=== PATIENT | female | born 1980 | race Caucasian/White ===

== ENCOUNTER 2016-06-08 10:02 | Emergency (ER) | payer OTHER ==
[~2016-06-08] VITALS: Ht 162.6 cm; Wt 90.0 kg
[~2016-06-08 10:02] MED LIST: AMBIEN 10MG10 MG PO; AMBIEN 5MG TABLE5 MG PO; AMOXICILLIN 50500 MG PO; BIRTH CONTROL PILL PO; CELEXA; EC NAPROSYN500 MG PO; GLUCOPHAGE1000 MG PO; IRON325 M1 PO; KLONOPIN 0.5MG0.5 MG PO; LEVOXYL0.025 MG PO; LORTAB 5/500 501 TAB PO; MOBIC 7.5MG7.5 MG PO; MOTRIN 600600 MG/TAB PO; NEXIUM40 MG PO; NO HOME MEDICATIONS; NORCO 325 MG-51 TAB PO; PHENERGAN 25 TA25 MG PO; PHENERGAN W/CO120 M1 PO; PRENATAL1 TA1 PO; RANITIDINE75 MG PO; SLEEP MED; SOME ANTIBIOTIC; SYNTHROID0.075 MG/T PO; TESSALON P100 MG/CAP PO; VENTOLIN0.09 MG IH; XANAX 0.5MG0.5 MG PO; ZITHROMAX Z PA250 MG PO; [UNRECOGNIZED DRUG - REMARK]; [UNRECOGNIZED DRUG - REMARK]
[2016-06-08 10:05] VITALS: BP 126/93; TEMP 97.5
[2016-06-08 10:49] LABS: BASO % 0.4 % (0.0-2.0); EOS % 0.7 % (0-4.0); GRAN # 3.9 (1.4-6.5); GRAN % 69.6 % (42.2-75.2); HEMATOCRIT 39.9 % (37.0-47.0); HEMOGLOBIN 13.6 g/dl (12.5-16.0); LYMPH # 1.2 (1.2-3.4); LYMPH % 22.2 % (20.0-51.0); MEAN CELL VOLUME 96 fl (80.0-100.0); MEAN CORPUSCULAR HEMOGLOBIN 33 pg (27.0-31.0); MEAN CORPUSCULAR HGB CONC 34 g/dl (33.0-37.0); MEAN PLATELET VOLUME 9.8 fl (7.4-10.4); MONO # 0.4 (0.1-0.6); MONO % 6.9 % (1.7-9.3); PLATELET COUNT 225 K/mm3 (130-400); RED BLOOD COUNT 4.17 M/mm3 (4.10-5.30); REDCELL DISTRIBUTION WIDTH-CV 12.6 % (11.5-14.5); WHITE BLOOD COUNT 5.5 K/mm3 (4.8-10.8)
[2016-06-08 12:03] VITALS: PULSE 81
== END 2016-06-08 12:03 | disposition home or self-care (01) ==
LOC: COL.ER 10:02
PROVIDERS: Nurse Practitioner
DX: G43.909 Migraine, unspecified, not intractable, without status migrainosus (principal); I10 Essential (primary) hypertension
CPT/HCPCS: J1200; J1885; J2060; J2550; J2765; J7030

== ENCOUNTER 2016-06-29 09:07 | Emergency (ER) | payer MEDICAID ==
[~2016-06-29] VITALS: Ht 162.6 cm; Wt 81.8 kg
[2016-06-29 09:10] VITALS: BP 110/76; PULSE 114
[2016-06-29] MEDS ORDERED: SYNTHROID0.075 MG/T PO (09:15)
[2016-06-29] MEDS ORDERED: TOPAMAX 25MG25 M1 PO (09:15)
[2016-06-29] MEDS ORDERED: EFFEXOR 75M75 MG/TAB PO (09:15)
[2016-06-29 10:09] LABS: INFLUENZA B NEGATIVE
[2016-06-29 11:23] LABS: PH 6 (5-8); URINE APPEARANCE Hazy; URINE BACTERIA None Seen /hpf; URINE BILIRUBIN Negative (NEGATIVE); URINE BLOOD Negative (NEGATIVE); URINE COLOR Yellow; URINE GLUCOSE Negative (NEGATIVE); URINE KETONE Negative (NEGATIVE)
[2016-06-29] MEDS ORDERED: NORCO 325 MG-51 TAB PO (11:58)
[2016-06-29] MEDS ORDERED: ZITHROMAX 250M250 MG PO (11:58)
[2016-06-29 12:20] VITALS: TEMP 98.6
== END 2016-06-29 12:30 | disposition home or self-care (01) ==
LOC: COL.ER 09:07
PROVIDERS: Emergency Medicine
DX: J20.9 Acute bronchitis, unspecified (principal)
CPT/HCPCS: J2405; J7030

== ENCOUNTER 2016-08-30 16:02 | Emergency (ER) | payer MEDICAID ==
[~2016-08-30] VITALS: Ht 167.6 cm; Wt 86.4 kg
[~2016-08-30 16:02] MED LIST changes: +EFFEXOR 75M75 MG/TAB PO; +TOPAMAX 25MG25 M1 PO; +ZITHROMAX 250M250 MG PO
[2016-08-30 16:07] VITALS: BP 135/73; PULSE 109; TEMP 99
== END 2016-08-30 16:45 | disposition left against medical advice (07) ==
LOC: COL.ER 16:02
DX: Z76.0 Encounter for issue of repeat prescription (principal); Z53.21 Procedure and treatment not carried out due to patient leaving prior to being seen by health care provider

== ENCOUNTER → 2016-09-04 | Outpatient (CLI) | payer MEDICAID | LOC: COL.RAD 09:50 | DX: C64.2 Malignant neoplasm of left kidney, except renal pelvis (principal); R50.82 Postprocedural fever; N20.0 Calculus of kidney; N28.89 Other specified disorders of kidney and ureter; Z98.890 Other specified postprocedural states | CPT/HCPCS: Q9967 ==

== ENCOUNTER 2017-06-24 09:37 | Emergency (ER) | payer MEDICAID ==
[~2017-06-24] VITALS: Ht 157.5 cm; Wt 86.4 kg
[~2017-06-24 09:37] MED LIST changes: +SYNTHROID0.1 MG/TAB PO
[2017-06-24 09:39] VITALS: TEMP 98.6
[2017-06-24] MEDS ORDERED: PRIL40 PO (10:30)
[2017-06-24] MEDS ORDERED: AMBIEN 10MG10 MG PO (10:30)
[2017-06-24 10:34] LABS: BASO % 0.6 % (0.0-2.0); EOS # 0.1 (0.0-0.7); EOS % 1.9 % (0-4.0); GRAN # 3.5 (1.4-6.5); GRAN % 56.3 % (42.2-75.2); HEMATOCRIT 39.8 % (37.0-47.0); HEMOGLOBIN 13.3 g/dl (12.5-16.0); LYMPH # 2.1 (1.2-3.4); LYMPH % 34.2 % (20.0-51.0); MEAN CELL VOLUME 93 fl (80.0-100.0); MEAN CORPUSCULAR HEMOGLOBIN 31 pg (27.0-31.0); MEAN CORPUSCULAR HGB CONC 33 g/dl (33.0-37.0); MEAN PLATELET VOLUME 8.9 fl (7.4-10.4); MONO # 0.4 (0.1-0.6); MONO % 6.7 % (1.7-9.3); PLATELET COUNT 291 K/mm3 (130-400); RED BLOOD COUNT 4.26 M/mm3 (4.10-5.30); REDCELL DISTRIBUTION WIDTH-CV 13.5 % (11.5-14.5)
[2017-06-24 10:45] LABS: ALANINE AMINOTRANSFERASE 92 U/L (9-52); ALBUMIN 4.4 gm/dL (3.5-5.0); ALKALINE PHOSPHATASE 108 U/L (50-136); ANION GAP 7 mmol/L (7-16); AST,SGOT 77 U/L (15-37); BILIRUBIN,TOTAL 0.8 mg/dL (0.0-1.0); BLOOD UREA NITROGEN 16 mg/dL (7-17); CARBON DIOXIDE 27 mmol/L (22-30); CHLORIDE 103 mmol/L (98-107); CREATININE, serum 0.75 mg/dL (0.52-1.25); GLUCOSE 109 mg/dL (74-106); LIPASE 80 U/L (23-300); POTASSIUM 4.1 mmol/L (3.4-5.0); SODIUM 137 mmol/L (137-145)
[2017-06-24 10:49] LABS: C-REACTIVE PROTEIN < 0.5 mg/dL (0.0-0.9)
[2017-06-24] MEDS ORDERED: NORCO 325 MG-51 TAB PO (12:31)
[2017-06-24 12:55] LABS: COLLECTION METHOD CLEAN CATCH
[2017-06-24 13:09] LABS: MUCOUS Present /lpf; PH 6 (5-8); SQUAMOUS EPITHELIAL 0-2 /hpf; URINE APPEARANCE Clear; URINE BACTERIA None Seen /hpf; URINE BILIRUBIN Negative (NEGATIVE); URINE BLOOD Negative (NEGATIVE); URINE COLOR Straw; URINE GLUCOSE Negative (NEGATIVE); URINE KETONE Negative (NEGATIVE); URINE LEUKOCYTE ESTERASE Negative (NEGATIVE); URINE NITRATE Negative (NEGATIVE); URINE PROTEIN(semi-quant) Negative (NEGATIVE); URINE RBC 0-2 /hpf; URINE UROBILINOGEN Negative (NEGATIVE)
[2017-06-24 13:26] VITALS: BP 110/69; PULSE 79
== END 2017-06-24 13:26 | disposition home or self-care (01) ==
LOC: COL.ER 09:37
PROVIDERS: Family Medicine
DX: R10.12 Left upper quadrant pain (principal); Z85.528 Personal history of other malignant neoplasm of kidney; Z90.5 Acquired absence of kidney; Z90.49 Acquired absence of other specified parts of digestive tract; Z90.89 Acquired absence of other organs
CPT/HCPCS: J1170; J2405; J2550; J7030

== ENCOUNTER 2018-04-27 19:00 | Emergency (ER) | payer MEDICAID ==
[~2018-04-27] VITALS: Ht 162.6 cm; Wt 86.4 kg
[~2018-04-27 19:00] MED LIST changes: +PRIL40 PO
[2018-04-27] MEDS ORDERED: EFFEXOR XR75 MG/CAP PO (19:12)
[2018-04-27] MEDS ORDERED: CIPRO 500MG TA500 MG PO (19:29)
[2018-04-27 19:30] LABS: COLLECTION METHOD CLEAN CATCH
[2018-04-27 19:36] LABS: BASO # 0.1 (0.0-0.2); BASO % 0.7 % (0.0-2.0); EOS # 0.1 (0.0-0.7); EOS % 1.5 % (0-4.0); GRAN # 4.4 (1.4-6.5); GRAN % 58.1 % (42.2-75.2); HEMATOCRIT 42.6 % (37.0-47.0); HEMOGLOBIN 14.6 g/dl (12.5-16.0); LYMPH # 2.4 (1.2-3.4); LYMPH % 32.2 % (20.0-51.0); MEAN CELL VOLUME 95 fl (80.0-100.0); MEAN CORPUSCULAR HEMOGLOBIN 32 pg (27.0-31.0); MEAN CORPUSCULAR HGB CONC 34 g/dl (33.0-37.0); MEAN PLATELET VOLUME 9.5 fl (7.4-10.4); MONO # 0.5 (0.1-0.6); MONO % 7.2 % (1.7-9.3); PLATELET COUNT 237 K/mm3 (130-400); REDCELL DISTRIBUTION WIDTH-CV 11.9 % (11.5-14.5)
[2018-04-27 19:45] LABS: ALANINE AMINOTRANSFERASE 38 U/L (9-52); ALBUMIN 4.4 gm/dL (3.5-5.0); ALKALINE PHOSPHATASE 77 U/L (50-136); ANION GAP 8 mmol/L (7-16); AST,SGOT 28 U/L (15-37); BILIRUBIN,TOTAL 0.3 mg/dL (0.0-1.0); BLOOD UREA NITROGEN 15 mg/dL (7-17); C-REACTIVE PROTEIN < 0.5 mg/dL (0.0-0.9); CALCIUM 9.2 mg/dL (8.4-10.2); CARBON DIOXIDE 24 mmol/L (22-30); CHLORIDE 109 mmol/L (98-107); CREATININE, serum 0.97 mg/dL (0.52-1.25); GLUCOSE 113 mg/dL (74-106); LIPASE 87 U/L (23-300); MUCOUS Present /lpf; PH 6 (5-8); POTASSIUM 4.1 mmol/L (3.4-5.0); SODIUM 140 mmol/L (137-145); TOTAL PROTEIN 8.2 gm/dL (6.4-8.2); URINE APPEARANCE Clear; URINE BACTERIA None Seen /hpf; URINE BILIRUBIN Negative (NEGATIVE); URINE BLOOD Negative (NEGATIVE); URINE CALCIUM OXALATE CRYSTAL Present /hpf; URINE COLOR Yellow; URINE GLUCOSE Negative (NEGATIVE); URINE KETONE Negative (NEGATIVE); URINE LEUKOCYTE ESTERASE Negative (NEGATIVE); URINE NITRATE Negative (NEGATIVE); URINE PROTEIN(semi-quant) 1+ (NEGATIVE); URINE RBC 0-2 /hpf; URINE UROBILINOGEN Negative (NEGATIVE)
[2018-04-27 21:05] VITALS: BP 116/97; PULSE 112; TEMP 97.8
[2018-04-27] MEDS ORDERED: PYRIDIUM200 M1 PO (21:06)
== END 2018-04-27 21:18 | disposition home or self-care (01) ==
LOC: COL.ER 19:00
PROVIDERS: Emergency Medicine
DX: R10.32 Left lower quadrant pain (principal); R30.0 Dysuria; Z90.49 Acquired absence of other specified parts of digestive tract; Z90.89 Acquired absence of other organs
CPT/HCPCS: J0780; J1170; J1200; J1885; J2060; J7030; Q9967

== ENCOUNTER 2018-05-11 15:01 | Emergency (ER) | payer MEDICAID ==
[~2018-05-11] VITALS: Ht 162.6 cm; Wt 86.4 kg
[~2018-05-11 15:01] MED LIST changes: +CIPRO 500MG TA500 MG PO; +EFFEXOR XR75 MG/CAP PO; +PYRIDIUM200 M1 PO
[2018-05-11 15:05] VITALS: TEMP 97.5
[2018-05-11] MEDS ORDERED: SYNTHROID0.125 MG/T PO (15:27)
[2018-05-11 15:28] LABS: COLLECTION METHOD CLEAN CATCH
[2018-05-11 15:33] LABS: MUCOUS Present /lpf; PH 6 (5-8); SQUAMOUS EPITHELIAL 0-2 /hpf; URINE APPEARANCE Clear; URINE BACTERIA None Seen /hpf; URINE BILIRUBIN Negative (NEGATIVE); URINE BLOOD Negative (NEGATIVE); URINE COLOR Yellow; URINE GLUCOSE Negative (NEGATIVE); URINE KETONE Negative (NEGATIVE); URINE LEUKOCYTE ESTERASE Negative (NEGATIVE); URINE NITRATE Negative (NEGATIVE); URINE PROTEIN(semi-quant) Negative (NEGATIVE); URINE RBC 0-2 /hpf; URINE UROBILINOGEN Negative (NEGATIVE)
[2018-05-11 15:45] LABS: BASO % 0.6 % (0.0-2.0); EOS # 0.1 (0.0-0.7); EOS % 1.7 % (0-4.0); GRAN % 57.1 % (42.2-75.2); HEMATOCRIT 40.4 % (37.0-47.0); HEMOGLOBIN 13.8 g/dl (12.5-16.0); LYMPH # 2.4 (1.2-3.4); LYMPH % 34.4 % (20.0-51.0); MEAN CELL VOLUME 94 fl (80.0-100.0); MEAN CORPUSCULAR HEMOGLOBIN 32 pg (27.0-31.0); MEAN CORPUSCULAR HGB CONC 34 g/dl (33.0-37.0); MEAN PLATELET VOLUME 9.1 fl (7.4-10.4); MONO # 0.4 (0.1-0.6); MONO % 6.1 % (1.7-9.3); PLATELET COUNT 250 K/mm3 (130-400); RED BLOOD COUNT 4.29 M/mm3 (4.10-5.30); REDCELL DISTRIBUTION WIDTH-CV 12.3 % (11.5-14.5)
[2018-05-11 15:56] LABS: ALANINE AMINOTRANSFERASE 25 U/L (9-52); ALBUMIN 4.3 gm/dL (3.5-5.0); ALKALINE PHOSPHATASE 86 U/L (50-136); ANION GAP 7 mmol/L (7-16); AST,SGOT 29 U/L (15-37); BILIRUBIN,TOTAL 0.4 mg/dL (0.0-1.0); BLOOD UREA NITROGEN 15 mg/dL (7-17); CARBON DIOXIDE 28 mmol/L (22-30); CHLORIDE 106 mmol/L (98-107); CREATININE, serum 0.79 mg/dL (0.52-1.25); GLUCOSE 96 mg/dL (74-106); POTASSIUM 3.9 mmol/L (3.4-5.0); SODIUM 141 mmol/L (137-145); TOTAL PROTEIN 7.9 gm/dL (6.4-8.2)
[2018-05-11 16:15] LABS: C-REACTIVE PROTEIN < 0.5 mg/dL (0.0-0.9)
[2018-05-11] MEDS ORDERED: LAMISIL250 M1 PO (16:52)
[2018-05-11 17:31] VITALS: BP 126/81; PULSE 66
== END 2018-05-11 17:31 | disposition home or self-care (01) ==
LOC: COL.ER 15:01
PROVIDERS: Nurse Practitioner
DX: R10.32 Left lower quadrant pain (principal); B35.0 Tinea barbae and tinea capitis; F41.9 Anxiety disorder, unspecified; Z90.49 Acquired absence of other specified parts of digestive tract; Z85.828 Personal history of other malignant neoplasm of skin
CPT/HCPCS: J7030

== ENCOUNTER → 2019-02-07 | Outpatient (CLI) | payer MEDICAID ==
[~2019-02-07] MED LIST changes: +LAMISIL250 M1 PO; +SYNTHROID0.125 MG/T PO
== END ==
LOC: COL.RAD 07:43
DX: K44.9 Diaphragmatic hernia without obstruction or gangrene (principal); K29.70 Gastritis, unspecified, without bleeding; K21.9 Gastro-esophageal reflux disease without esophagitis
CPT/HCPCS: A9541

== ENCOUNTER 2019-09-18 13:11 | Emergency (ER) | payer MEDICAID ==
[~2019-09-18] VITALS: Ht 165.1 cm; Wt 83.2 kg
[2019-09-18] MEDS ORDERED: PYRIDIUM200 M1 PO (13:25)
[2019-09-18] MEDS ORDERED: BUSPIRONE HCL7.5 MG PO (13:26)
[2019-09-18] MEDS ORDERED: AMBIEN 10MG10 MG PO (13:26)
[2019-09-18 13:27] VITALS: TEMP 98.3
[2019-09-18 14:04] LABS: COLLECTION METHOD CLEAN CATCH
[2019-09-18 14:09] LABS: BASO # 0.1 (0.0-0.2); BASO % 0.9 % (0.0-2.0); EOS # 0.1 (0.0-0.7); EOS % 1.7 % (0-4.0); GRAN # 3.3 (1.4-6.5); GRAN % 46.2 % (42.2-75.2); HEMATOCRIT 41.5 % (37.0-47.0); HEMOGLOBIN 13.8 g/dl (12.5-16.0); LYMPH % 41.9 % (20.0-51.0); MEAN CELL VOLUME 95 fl (80.0-100.0); MEAN CORPUSCULAR HEMOGLOBIN 32 pg (27.0-31.0); MEAN CORPUSCULAR HGB CONC 33 g/dl (33.0-37.0); MEAN PLATELET VOLUME 9.2 fl (7.4-10.4); MONO # 0.7 (0.1-0.6); MONO % 9.2 % (1.7-9.3); PLATELET COUNT 288 K/mm3 (130-400); RED BLOOD COUNT 4.38 M/mm3 (4.10-5.30); REDCELL DISTRIBUTION WIDTH-CV 11.9 % (11.5-14.5)
[2019-09-18 14:18] LABS: ALBUMIN 4.7 gm/dL (3.5-5.0); BILIRUBIN,TOTAL 0.6 mg/dL (0.0-1.0); CREATININE, serum 0.68 (0.52-1.25)
[2019-09-18 14:24] LABS: MUCOUS Present /lpf; PH 5 (5-8); SQUAMOUS EPITHELIAL 0-2 /hpf; URINE APPEARANCE Hazy; URINE BACTERIA Occasional /hpf; URINE BILIRUBIN Negative (NEGATIVE); URINE BLOOD 3+ (NEGATIVE); URINE COLOR Yellow; URINE GLUCOSE Negative (NEGATIVE); URINE KETONE Negative (NEGATIVE); URINE LEUKOCYTE ESTERASE Negative (NEGATIVE); URINE NITRATE Negative (NEGATIVE); URINE PROTEIN(semi-quant) 1+ (NEGATIVE); URINE RBC >50 /hpf; URINE UROBILINOGEN Negative (NEGATIVE)
[2019-09-18] MEDS ORDERED: PERCOCET 325 MG1 TA2 PO (15:22)
[2019-09-18] MEDS ORDERED: ZOFRAN ODT4 MG PO (15:22)
[2019-09-18] MEDS ORDERED: CEFTIN 250250 MG/TAB PO (15:22)
[2019-09-18 15:33] VITALS: BP 116/69; PULSE 72
[2019-09-19] MEDS ORDERED: ZOFRAN 4MG T4 MG/TAB PO (19:38)
[2019-09-19] MEDS ORDERED: NORCO 325 MG-51 TAB PO (19:38)
== END 2019-09-18 15:33 | disposition home or self-care (01) ==
LOC: COL.ER 13:11
PROVIDERS: Nurse Practitioner
DX: R10.9 Unspecified abdominal pain (principal); R31.9 Hematuria, unspecified; I10 Essential (primary) hypertension; F41.9 Anxiety disorder, unspecified; E03.9 Hypothyroidism, unspecified; Z90.89 Acquired absence of other organs
CPT/HCPCS: J1170; J1885; J2405; J7030

== ENCOUNTER 2019-09-19 16:53 | Emergency (ER) | payer MEDICAID ==
[~2019-09-19] VITALS: Ht 162.6 cm; Wt 83.2 kg
[~2019-09-19 16:53] MED LIST changes: +BUSPIRONE HCL7.5 MG PO; +CEFTIN 250250 MG/TAB PO; +PERCOCET 325 MG1 TA2 PO; +ZOFRAN ODT4 MG PO
[2019-09-19 17:00] VITALS: TEMP 97.2
[2019-09-19 17:33] LABS: BASO % 0.5 % (0.0-2.0); EOS # 0.1 (0.0-0.7); EOS % 1.5 % (0-4.0); GRAN # 3.6 (1.4-6.5); GRAN % 64.6 % (42.2-75.2); HEMATOCRIT 40.6 % (37.0-47.0); HEMOGLOBIN 13.4 g/dl (12.5-16.0); LYMPH # 1.5 (1.2-3.4); MEAN CELL VOLUME 95 fl (80.0-100.0); MEAN CORPUSCULAR HEMOGLOBIN 31 pg (27.0-31.0); MEAN CORPUSCULAR HGB CONC 33 g/dl (33.0-37.0); MEAN PLATELET VOLUME 8.6 fl (7.4-10.4); MONO # 0.3 (0.1-0.6); MONO % 6.2 % (1.7-9.3); PLATELET COUNT 258 K/mm3 (130-400); RED BLOOD COUNT 4.29 M/mm3 (4.10-5.30); REDCELL DISTRIBUTION WIDTH-CV 11.9 % (11.5-14.5)
[2019-09-19 17:48] LABS: ALANINE AMINOTRANSFERASE 46 U/L (4-34); ALBUMIN 4.3 gm/dL (3.5-5.0); ALKALINE PHOSPHATASE 109 U/L (50-136); ANION GAP 7 mmol/L (7-16); AST,SGOT 40 U/L (15-37); BILIRUBIN,TOTAL 0.8 mg/dL (0.0-1.0); BLOOD UREA NITROGEN 15 mg/dL (7-17); CALCIUM 9.1 mg/dL (8.4-10.2); CARBON DIOXIDE 27 mmol/L (22-30); CHLORIDE 106 mmol/L (98-107); CREATININE, serum 0.88 (0.52-1.25); GLUCOSE 116 mg/dL (74-106); POTASSIUM 4.1 mmol/L (3.4-5.0); SODIUM 140 mmol/L (137-145); TOTAL PROTEIN 8.1 gm/dL (6.4-8.2)
[2019-09-19 17:49] LABS: C-REACTIVE PROTEIN < 0.5 mg/dL (0.0-0.9)
[2019-09-19 18:08] LABS: COLLECTION METHOD CLEAN CATCH
[2019-09-19 18:19] LABS: MUCOUS Present /lpf; PH 5 (5-8); SQUAMOUS EPITHELIAL 0-2 /hpf; URINE APPEARANCE Clear; URINE BACTERIA None Seen /hpf; URINE BILIRUBIN Negative (NEGATIVE); URINE BLOOD 3+ (NEGATIVE); URINE COLOR Yellow; URINE GLUCOSE Negative (NEGATIVE); URINE KETONE Negative (NEGATIVE); URINE LEUKOCYTE ESTERASE Negative (NEGATIVE); URINE NITRATE Negative (NEGATIVE); URINE PROTEIN(semi-quant) Negative (NEGATIVE); URINE UROBILINOGEN Negative (NEGATIVE)
[2019-09-19] MEDS ORDERED: NORCO 325 MG-51 TAB PO (19:38)
[2019-09-19] MEDS ORDERED: ZOFRAN 4MG T4 MG/TAB PO (19:38)
[2019-09-19 20:38] VITALS: BP 128/74; PULSE 62
== END 2019-09-19 20:42 | disposition home or self-care (01) ==
LOC: COL.ER 16:53
PROVIDERS: Physician Assistant
DX: N23 Unspecified renal colic (principal); R51 Headache
CPT/HCPCS: J0780; J1170; J1200; J1885; J2405; J7030; Q9967

== ENCOUNTER 2019-11-09 16:15 | Emergency (ER) | payer MEDICAID ==
[~2019-11-09] VITALS: Ht 165.1 cm; Wt 83.2 kg
[~2019-11-09 16:15] MED LIST changes: +ZOFRAN 4MG T4 MG/TAB PO
[2019-11-09 16:27] VITALS: TEMP 97.6
[2019-11-09] MEDS ORDERED: AMBIEN 10MG10 MG PO (16:44)
[2019-11-09] MEDS ORDERED: D3-5050000 IU PO (16:44)
[2019-11-09] MEDS ORDERED: VITAMIN B COMPL1 SGL PO (16:44)
[2019-11-09 17:00] LABS: COLLECTION METHOD CLEAN CATCH
[2019-11-09 17:09] LABS: BASO % 0.4 % (0.0-2.0); EOS # 0.1 (0.0-0.7); GRAN # 4.9 (1.4-6.5); GRAN % 60.9 % (42.2-75.2); HEMATOCRIT 39.1 % (37.0-47.0); HEMOGLOBIN 13.3 g/dl (12.5-16.0); LYMPH # 2.3 (1.2-3.4); MEAN CELL VOLUME 94 fl (80.0-100.0); MEAN CORPUSCULAR HEMOGLOBIN 32 pg (27.0-31.0); MEAN CORPUSCULAR HGB CONC 34 g/dl (33.0-37.0); MEAN PLATELET VOLUME 9.2 fl (7.4-10.4); MONO # 0.7 (0.1-0.6); MONO % 8.5 % (1.7-9.3); PLATELET COUNT 220 K/mm3 (130-400); RED BLOOD COUNT 4.14 M/mm3 (4.10-5.30); REDCELL DISTRIBUTION WIDTH-CV 12.4 % (11.5-14.5)
[2019-11-09 17:14] LABS: MUCOUS Present /lpf; PH 6 (5-8); URINE APPEARANCE Clear; URINE BACTERIA None Seen /hpf; URINE BILIRUBIN Negative (NEGATIVE); URINE BLOOD 2+ (NEGATIVE); URINE COLOR Amber; URINE GLUCOSE Negative (NEGATIVE); URINE KETONE Negative (NEGATIVE); URINE LEUKOCYTE ESTERASE Negative (NEGATIVE); URINE NITRATE Positive (NEGATIVE); URINE PROTEIN(semi-quant) Negative (NEGATIVE); URINE UROBILINOGEN >=4.0 mg/dL (NEGATIVE)
[2019-11-09 17:21] LABS: ALANINE AMINOTRANSFERASE 16 U/L (4-34); ALBUMIN 4.3 gm/dL (3.5-5.0); ALKALINE PHOSPHATASE 80 U/L (50-136); ANION GAP 7 mmol/L (7-16); AST,SGOT 19 U/L (15-37); BILIRUBIN,TOTAL 0.9 mg/dL (0.0-1.0); BLOOD UREA NITROGEN 16 mg/dL (7-17); CALCIUM 8.9 mg/dL (8.4-10.2); CARBON DIOXIDE 25 mmol/L (22-30); CHLORIDE 106 mmol/L (98-107); CREATININE, serum 0.77 (0.52-1.25); GLUCOSE 96 mg/dL (74-106); LIPASE 88 U/L (23-300); POTASSIUM 3.5 mmol/L (3.4-5.0); SODIUM 138 mmol/L (137-145); TOTAL PROTEIN 7.9 gm/dL (6.4-8.2)
[2019-11-09 17:26] LABS: C-REACTIVE PROTEIN < 0.5 mg/dL (0.0-0.9)
[2019-11-09] MEDS ORDERED: MACROBID 1100 MG/CAP PO (17:53)
[2019-11-09 17:58] VITALS: BP 124/81; PULSE 75
[2019-11-09] MEDS ORDERED: PERCOCET 325 MG1 TA2 PO (18:00)
== END 2019-11-09 18:15 | disposition home or self-care (01) ==
LOC: COL.ER 16:15
PROVIDERS: Family Medicine
DX: N39.0 Urinary tract infection, site not specified (principal); R19.7 Diarrhea, unspecified; G89.29 Other chronic pain; Z90.49 Acquired absence of other specified parts of digestive tract; Z90.89 Acquired absence of other organs; Z32.02 Encounter for pregnancy test, result negative; Z88.8 Allergy status to other drugs, medicaments and biological substances
CPT/HCPCS: J0696; J2270; J2405; J7120

== ENCOUNTER 2019-11-15 11:01 | Day surgery (SDC) | payer MEDICAID ==
[~2019-11-15] VITALS: Ht 165.1 cm; Wt 84.3 kg
[~2019-11-15 11:01] MED LIST changes: +D3-5050000 IU PO; +MACROBID 1100 MG/CAP PO; +VITAMIN B COMPL1 SGL PO
[2019-11-15 11:35] VITALS: BP 120/78; PULSE 96; TEMP 98.2
[2019-11-15 11:54] LABS: COLLECTION METHOD CLEAN CATCH
[2019-11-15 12:24] LABS: MUCOUS Present /lpf; PH 5 (5-8); URINE APPEARANCE Cloudy; URINE BACTERIA None Seen /hpf; URINE BILIRUBIN Negative (NEGATIVE); URINE BLOOD 3+ (NEGATIVE); URINE CALCIUM OXALATE CRYSTAL Present /hpf; URINE COLOR Yellow; URINE GLUCOSE Negative (NEGATIVE); URINE KETONE Negative (NEGATIVE); URINE LEUKOCYTE ESTERASE Negative (NEGATIVE); URINE NITRATE Negative (NEGATIVE); URINE PROTEIN(semi-quant) 1+ (NEGATIVE); URINE RBC >50 /hpf
[2019-11-15 12:29] LABS: BASO % 0.5 % (0.0-2.0); EOS # 0.1 (0.0-0.7); EOS % 1.8 % (0-4.0); GRAN # 3.5 (1.4-6.5); GRAN % 58.8 % (42.2-75.2); HEMOGLOBIN 12.8 g/dl (12.5-16.0); LYMPH # 1.9 (1.2-3.4); LYMPH % 31.2 % (20.0-51.0); MEAN CELL VOLUME 94 fl (80.0-100.0); MEAN CORPUSCULAR HEMOGLOBIN 33 pg (27.0-31.0); MEAN CORPUSCULAR HGB CONC 35 g/dl (33.0-37.0); MEAN PLATELET VOLUME 9.2 fl (7.4-10.4); MONO # 0.5 (0.1-0.6); MONO % 7.7 % (1.7-9.3); PLATELET COUNT 223 K/mm3 (130-400); RED BLOOD COUNT 3.91 M/mm3 (4.10-5.30); REDCELL DISTRIBUTION WIDTH-CV 12.5 % (11.5-14.5)
[2019-11-15 12:31] LABS: HEMATOCRIT 36.9 % (37.0-47.0)
[2019-11-15 12:39] LABS: CALCIUM 8.9 mg/dL (8.4-10.2); CREATININE, serum 0.65 (0.52-1.25); POTASSIUM 3.5 mmol/L (3.4-5.0)
[2019-11-15 16:31] VITALS: BP 119/76; PULSE 76; TEMP 97.8
--- NOTE | 2019-11-15 17:59 | NUR ---
Patient was admitted late this morning. Admitted per . Orders obtained. Inital,5 page, med rec up to date. Vss. Iv started, Ivf & antibioitcs per orders. Patient tolerating general diet, she will be NPO at 0000, plans or Or in the AM. Pain managed per orders, she has had low pelvis pain. Scds ble.
[2019-11-15 20:00] VITALS: BP 140/93; PULSE 77; TEMP 98
[2019-11-15 23:30] VITALS: BP 129/69; PULSE 72; TEMP 98.2
[2019-11-16] VITALS (12 sets, daily range): BP systolic 120–144; BP diastolic 64–84; PULSE 65–95; TEMP 98–98.4
--- NOTE | 2019-11-16 11:22 | NUR ---
PT A/O X3, WAITING FOR SURGERY. LATER THIS PM. INDEPENDENT IN ROOM. LUNGS CLEAR, NO INCISIONS.
--- NOTE | 2019-11-16 14:40 | NUR ---
PT TO SURGERY PER BED AT THIS TIME.
--- NOTE | 2019-11-16 17:23 | NUR ---
PT BACK TO ROOM 329 PER BED WITH REPORT FROM [facility] HUGHES PACU @[id number]. PT IS A/O X3 DROWSEY, IV TO RIGHT HAND. PT REPORTING INCREASING PAIN, PO PAIN MEDS GIVEN PER ORDERS. STENT PLACED WITH STRING TEGADERM TO LEFT THIGH. SCDS PLACED BILATERALLY.
--- NOTE | 2019-11-16 19:45 | NUR ---
Assessment complete. VSS WNL. Taking PO fluids w/o c/o N/V. Kpad to lower abd for comfort. Requests crackers, provided. Denies other needs at this time.
[2019-11-17 03:27] VITALS: BP 118/63; PULSE 69; TEMP 98.9
[2019-11-17 08:19] VITALS: BP 111/63; PULSE 68; TEMP 98.1
--- NOTE | 2019-11-17 09:03 | NUR ---
PT RESTING IN BED, REPORTING PAIN IS BETTER. DR ARMSTRONG IN TO SEE PT THIS AM. DISCHARGE ORDERS RECIEVED.
--- NOTE | 2019-11-17 10:18 | NUR ---
DISCHARGE INSTRUCTIONS REVIEWED WITH PT. PT ESCORTED TO FRONT AMBULATORY,
== END 2019-11-17 10:00 | disposition home or self-care (01) ==
LOC: SDCO 11:01 → JCC 11:01 → EDSTATUS 11-16 15:00 → JCC 11-16 16:12 → SDCO 11-17 10:00 → JCC 11-17 10:00
PROVIDERS: Urology
DX: N20.2 Calculus of kidney with calculus of ureter (principal); N39.0 Urinary tract infection, site not specified; I10 Essential (primary) hypertension; E03.9 Hypothyroidism, unspecified; E28.2 Polycystic ovarian syndrome; F41.9 Anxiety disorder, unspecified; G47.00 Insomnia, unspecified; E66.9 Obesity, unspecified; Z68.30 Body mass index [BMI] 30.0-30.9, adult; Z79.899 Other long term (current) drug therapy; Z85.528 Personal history of other malignant neoplasm of kidney; Z90.5 Acquired absence of kidney
CPT/HCPCS: OP; A9284; C1769; C2617; G0379; J1170; J1885; J1956; J2250; J2270; J2405; J3010; J7120; Q9967

== ENCOUNTER 2020-03-12 10:11 | Emergency (ER) | payer MEDICAID ==
[~2020-03-12] VITALS: Ht 162.6 cm; Wt 81.8 kg
[2020-03-12 10:15] VITALS: TEMP 98.7
[2020-03-12 10:50] LABS: COLLECTION METHOD CLEAN CATCH
[2020-03-12 11:09] LABS: MUCOUS Present /lpf; PH 6 (5-8); SQUAMOUS EPITHELIAL 0-2 /hpf; URINE APPEARANCE Hazy; URINE BACTERIA Rare /hpf; URINE BILIRUBIN Negative (NEGATIVE); URINE BLOOD 3+ (NEGATIVE); URINE COLOR Yellow; URINE GLUCOSE Negative (NEGATIVE); URINE KETONE Negative (NEGATIVE); URINE LEUKOCYTE ESTERASE 1+ (NEGATIVE); URINE NITRATE Negative (NEGATIVE); URINE PROTEIN(semi-quant) 2+ (NEGATIVE); URINE RBC >50 /hpf; URINE UROBILINOGEN Negative (NEGATIVE)
[2020-03-12 11:16] LABS: ALBUMIN 4.4 gm/dL (3.5-5.0); BILIRUBIN,TOTAL 0.7 mg/dL (0.0-1.0); C-REACTIVE PROTEIN 4.9 mg/dL (0.0-0.9); CALCIUM 8.8 mg/dL (8.4-10.2); CREATININE, serum 0.85 (0.52-1.25); POTASSIUM 3.2 mmol/L (3.4-5.0)
[2020-03-12 11:20] LABS: BASO % 0.3 % (0.0-2.0); GRAN # 5.9 (1.4-6.5); GRAN % 79.7 % (42.2-75.2); HEMOGLOBIN 13.1 g/dl (12.5-16.0); LYMPH # 1.1 (1.2-3.4); LYMPH % 14.9 % (20.0-51.0); MEAN CELL VOLUME 91 fl (80.0-100.0); MEAN CORPUSCULAR HEMOGLOBIN 33 pg (27.0-31.0); MEAN CORPUSCULAR HGB CONC 36 g/dl (33.0-37.0); MEAN PLATELET VOLUME 9.5 fl (7.4-10.4); MONO # 0.4 (0.1-0.6); MONO % 4.8 % (1.7-9.3); PLATELET COUNT 228 K/mm3 (130-400); RED BLOOD COUNT 3.98 M/mm3 (4.10-5.30); REDCELL DISTRIBUTION WIDTH-CV 11.5 % (11.5-14.5)
[2020-03-12 11:21] LABS: HEMATOCRIT 36.3 % (37.0-47.0)
[2020-03-12] MEDS ORDERED: ZOFRAN ODT4 MG PO (12:53)
[2020-03-12] MEDS ORDERED: PERCOCET 325 MG1 TA2 PO (12:53)
[2020-03-12] MEDS ORDERED: CEFTIN500 MG PO (12:54)
[2020-03-12] MEDS ORDERED: PYRIDIUM200 M1 PO (12:55)
[2020-03-12 13:08] VITALS: BP 110/75; PULSE 88
== END 2020-03-12 13:08 | disposition home or self-care (01) ==
LOC: COL.ER 10:11
PROVIDERS: Emergency Medicine
DX: N23 Unspecified renal colic (principal); R30.0 Dysuria; Z87.442 Personal history of urinary calculi
CPT/HCPCS: J0696; J1170; J2405; J7030

== ENCOUNTER → 2021-04-29 | Outpatient (CLI) | payer MEDICAID ==
[~2021-04-29] MED LIST changes: +CEFTIN500 MG PO
== END ==
LOC: COL.RAD 08:30
DX: K44.9 Diaphragmatic hernia without obstruction or gangrene (principal); K21.9 Gastro-esophageal reflux disease without esophagitis

== ENCOUNTER 2021-05-27 09:12 | Day surgery (SDC) | payer MEDICAID ==
[~2021-05-27] VITALS: Ht 162.6 cm; Wt 85.5 kg
[2021-05-27] VITALS (9 sets, daily range): BP systolic 97–133; BP diastolic 59–80; PULSE 60–91; TEMP 97.6–98.4
--- NOTE | 2021-05-27 09:35 | NUR ---
40 Year old patient admitted to bay #7 via ambulation. Patient is alert and oriented x3, using a steady gait. Medications and HX reviewed. Patient stated the was "no way she is ". She verbalize understanding of the risks involved if she was, and signed the refusal form instead of providing a urine sample. Height and weight obtained. Patient used the bathroom and changed into a clean gown. Two warm blankets provided. IV started in R hand on first attempt with 20G. IVF scanned and infusing without difficulty. Call pan is within reach. Side rails x2.
[2021-05-27] MEDS ORDERED: PRIL40 PO (09:38)
--- NOTE | 2021-05-27 10:39 | NUR ---
Initial visit; Patient thanked [employer] for looking in on her and offering prayer for a successful surgical procedure and rapid and thorough healing. [employer] offered God's blessings.
--- NOTE | 2021-05-27 15:50 | NUR ---
Pt arrived on unit from PACU via bed. Oriented to room, bed and call light within reach.
[2021-05-28 03:45] VITALS: BP 125/66; PULSE 73; TEMP 98.5
[2021-05-28 07:45] VITALS: BP 112/69; PULSE 72; TEMP 98.1
--- NOTE | 2021-05-28 08:20 | NUR ---
Phenergan 25 mg in 50 ml of normal saline infusing at 204 ccs for fourteen minutes as ordered. Patient states having nausea, request medication.
--- NOTE | 2021-05-28 09:33 | NUR ---
Follow-up visit; Patient appeared to be in pain and very uncomfortable. She thanked [employer] for looking in on her again today and offering God's blessings for healing.
[2021-05-28 13:00] VITALS: BP 116/67; PULSE 82; TEMP 98.8
--- NOTE | 2021-05-28 14:15 | NUR ---
Ambulates in the hallway, tolerates well. Denies any pain or discomfort.
--- NOTE | 2021-05-28 16:30 | NUR ---
Discharge instructions given, verbalizes understanding. Dismissed to home with son. This nurse used wheel chair to take her down to their vehicle. Alert, stable.
== END 2021-05-28 16:30 | disposition home or self-care (01) ==
LOC: SDCO 09:12 → OB 15:50 → SDCO 05-28 16:30
DX: K21.00 Gastro-esophageal reflux disease with esophagitis, without bleeding (principal); K22.70 Barrett's esophagus without dysplasia; G47.33 Obstructive sleep apnea (adult) (pediatric); N39.0 Urinary tract infection, site not specified; E03.9 Hypothyroidism, unspecified; K76.0 Fatty (change of) liver, not elsewhere classified; Z90.89 Acquired absence of other organs; Z90.49 Acquired absence of other specified parts of digestive tract; Z85.528 Personal history of other malignant neoplasm of kidney; Z79.890 Hormone replacement therapy; Z79.899 Other long term (current) drug therapy; Z83.3 Family history of diabetes mellitus; Z82.49 Family history of ischemic heart disease and other diseases of the circulatory system
CPT/HCPCS: OP; J0690; J1170; J2270; J2405; J2550; J2704; J3010; J7120

== ENCOUNTER → 2021-08-05 | Outpatient (CLI) | payer MEDICAID | LOC: COL.RAD 08:30 | DX: K76.0 Fatty (change of) liver, not elsewhere classified (principal); N28.89 Other specified disorders of kidney and ureter; Z90.5 Acquired absence of kidney; Z85.528 Personal history of other malignant neoplasm of kidney | CPT/HCPCS: A9575 ==

== ENCOUNTER 2021-12-06 20:27 | Emergency (ER) | payer MEDICAID ==
[~2021-12-06] VITALS: Ht 157.5 cm; Wt 81.8 kg
[2021-12-06 20:52] VITALS: TEMP 99.8
[2021-12-06] MEDS ORDERED: ZOFRAN ODT4 MG PO (21:26)
[2021-12-06] MEDS ORDERED: PAXLOVID CO-PA1 EACH PO (21:26)
[2021-12-06 21:56] VITALS: BP 116/69; PULSE 86
== END 2021-12-06 21:57 | disposition home or self-care (01) ==
LOC: COL.ER 20:27
DX: U07.1 COVID-19 (principal)

== ENCOUNTER 2022-06-13 13:23 | Emergency (ER) | payer MEDICAID ==
[~2022-06-13] VITALS: Ht 162.6 cm; Wt 85.9 kg
[~2022-06-13 13:23] MED LIST changes: +BACTROBAN 22GM22 GM TP; +PAXLOVID CO-PA1 EACH PO; +ROXICODONE 55 MG/TAB PO
[2022-06-13 13:25] VITALS: TEMP 97.5
[2022-06-13 13:48] LABS: COLLECTION METHOD CLEAN CATCH
[2022-06-13 14:03] LABS: PH 5.5 (5.0-8.5); SQUAMOUS EPITHELIAL 0-2 /hpf (0-10); URINE APPEARANCE Clear (CLEAR/HAZY); URINE BACTERIA None Seen /hpf (NONE SEEN); URINE BLOOD 1+ (NEGATIVE); URINE COLOR Yellow (YELLOW); URINE GLUCOSE Negative (NEGATIVE); URINE KETONE Negative (NEGATIVE); URINE NITRATE Negative (NEGATIVE); URINE PROTEIN(semi-quant) Negative (NEGATIVE); URINE UROBILINOGEN 0.2 E.U/dL (0.2-1.0)
[2022-06-13 15:42] LABS: BASO % 0.5 % (0.0-2.0); EOS # 0.1 K/mm3 (0.0-0.7); GRAN # 4.5 K/mm3 (1.4-6.5); GRAN % 61.6 % (42.2-75.2); HEMATOCRIT 39.2 % (37.0-47.0); HEMOGLOBIN 13.2 g/dl (12.5-16.0); LYMPH # 2.3 K/mm3 (1.2-3.4); LYMPH % 30.9 % (20.0-51.0); MEAN CELL VOLUME 93 fl (80.0-100.0); MEAN CORPUSCULAR HEMOGLOBIN 31 pg (27-31); MEAN CORPUSCULAR HGB CONC 34 g/dl (33.0-37.0); MEAN PLATELET VOLUME 9.2 fl (7.4-10.4); MONO # 0.4 K/mm3 (0.1-0.6); MONO % 5.7 % (1.7-9.3); PLATELET COUNT 245 K/mm3 (130-400); REDCELL DISTRIBUTION WIDTH-CV 11.9 % (11.5-14.5)
[2022-06-13 16:00] LABS: ALBUMIN 4.2 gm/dL (3.5-5.0); BILIRUBIN,TOTAL 0.6 mg/dL (0.2-1.2); C-REACTIVE PROTEIN 0.09 mg/dL (0.00-0.50); CALCIUM 9.3 mg/dL (8.4-10.2); CREATININE, serum 0.78 mg/dL (0.57-1.11); POTASSIUM 3.8 mmol/L (3.5-4.5); TOTAL PROTEIN 7.8 gm/dL (6.2-8.1)
[2022-06-13] MEDS ORDERED: ULTRAM 50MG TAB50 MG PO (18:21)
[2022-06-13 18:44] VITALS: BP 124/81; PULSE 80
[2022-06-14] MEDS ORDERED: PERCOCET 325 MG1 TA2 PO (17:55)
[2022-06-14] MEDS ORDERED: DIFLUCAN 100MG100 MG PO (17:55)
[2022-06-14] MEDS ORDERED: ZOFRAN ODT4 MG PO (18:00)
== END 2022-06-13 18:45 | disposition home or self-care (01) ==
LOC: COL.ER 13:23
PROVIDERS: Nurse Practitioner
DX: N89.8 Other specified noninflammatory disorders of vagina (principal); R10.2 Pelvic and perineal pain
CPT/HCPCS: J1170; J2405; J7030; Q9967

== ENCOUNTER → 2022-09-02 | Outpatient (CLI) | payer MEDICAID ==
[~2022-09-02] MED LIST changes: +DIFLUCAN 100MG100 MG PO; +ULTRAM 50MG TAB50 MG PO
== END ==
LOC: COL.RAD 13:50
DX: R10.32 Left lower quadrant pain (principal)
CPT/HCPCS: Q9967

== ENCOUNTER 2022-09-24 07:15 | Day surgery (SDC) | payer MEDICAID ==
[~2022-09-24] VITALS: Ht 162.6 cm; Wt 84.2 kg
[2022-09-24] VITALS (10 sets, daily range): BP systolic 98–136; BP diastolic 66–84; PULSE 63–80; TEMP 97.7
[2022-09-24 08:07] LABS: HEMATOCRIT 37.5 % (37.0-47.0); MEAN CELL VOLUME 90 fl (80.0-100.0); MEAN CORPUSCULAR HEMOGLOBIN 31 pg (27-31); MEAN CORPUSCULAR HGB CONC 35 g/dl (33.0-37.0); MEAN PLATELET VOLUME 9.3 fl (7.4-10.4); PLATELET COUNT 193 K/mm3 (130-400); RED BLOOD COUNT 4.16 M/mm3 (4.10-5.30)
[2022-09-24 08:18] LABS: PROTHROMBIN TIME 11.3 SECONDS (9.7-12.8)
[2022-09-24 08:21] LABS: PARTIAL THROMBOPLASTIN TIME 22.6 SECONDS (26.0-37.0)
[2022-09-24 08:26] LABS: CALCIUM 8.9 mg/dL (8.4-10.2); CREATININE, serum 0.81 mg/dL (0.57-1.11); POTASSIUM 3.7 mmol/L (3.5-4.5)
--- NOTE | 2022-09-24 09:52 | NUR ---
Please see merge documentation for record of interventions, vitals and medications administered during procedure.
--- NOTE | 2022-09-24 14:58 | NUR ---
Pt discharged at approx 1430. Pt was assisted to the main lobby via wheelchair and her father was waiting at front entrance to drive her home. Pt tolerated po food and fluids during post-op period and pt's vs remained within her normal limits for duration of recovery. Pt did verbalize a headache upon returning to [facility] but after ingesting 8 oz of sprite, pt stated that headache went away. pt was given all discharge instruction packets and verbalized understanding of discharge teaching. IV was started by Shelly MCINTYRE RN. Pt's right radial access site was clean and dry upon deflation of TR band. Radial access site was dressed with gauze and bandage which was clean, dry, and intact upon pt discharge. TR was deflated by 2 mls at a time over the cours of 1.5 hours. Pt was free from concerns and complaints at time of discharge.
== END 2022-09-24 14:30 | disposition home or self-care (01) ==
LOC: COL.CAR 07:15
PROVIDERS: Internal Medicine Cardiovascular Disease
DX: I07.1 Rheumatic tricuspid insufficiency (principal); I70.0 Atherosclerosis of aorta; R07.9 Chest pain, unspecified; R00.0 Tachycardia, unspecified; Z86.73 Personal history of transient ischemic attack (TIA), and cerebral infarction without residual deficits
CPT/HCPCS: J1644; J2250; J2704; J3010; Q9967

== ENCOUNTER 2023-03-20 16:53 | Emergency (ER) | payer MEDICAID ==
[~2023-03-20] VITALS: Ht 165.1 cm; Wt 81.8 kg
[2023-03-20 16:57] VITALS: TEMP 98.2
[2023-03-20 17:33] LABS: COLLECTION METHOD CLEAN CATCH
[2023-03-20 17:39] LABS: BASO % 0.3 % (0.0-2.0); EOS # 0.1 K/mm3 (0.0-0.7); EOS % 0.8 % (0.0-4.0); GRAN # 3.3 K/mm3 (1.4-6.5); GRAN % 54.9 % (42.2-75.2); HEMATOCRIT 40.4 % (37.0-47.0); LYMPH # 2.2 K/mm3 (1.2-3.4); LYMPH % 36.9 % (20.0-51.0); MEAN CELL VOLUME 96 fl (80.0-100.0); MEAN CORPUSCULAR HEMOGLOBIN 31 pg (27-31); MEAN CORPUSCULAR HGB CONC 32 g/dl (33.0-37.0); MONO # 0.4 K/mm3 (0.1-0.6); MONO % 6.9 % (1.7-9.3); PLATELET COUNT 279 K/mm3 (130-400); RED BLOOD COUNT 4.21 M/mm3 (4.10-5.30); REDCELL DISTRIBUTION WIDTH-CV 14.2 % (11.5-14.5)
[2023-03-20 17:57] LABS: URINE APPEARANCE Clear (CLEAR/HAZY); URINE BLOOD 3+ (NEGATIVE); URINE COLOR Yellow (YELLOW); URINE GLUCOSE Negative (NEGATIVE); URINE KETONE TRACE (NEGATIVE); URINE NITRATE Negative (NEGATIVE); URINE PROTEIN(semi-quant) 1+ (NEGATIVE); URINE UROBILINOGEN 0.2 E.U/dL (0.2-1.0)
[2023-03-20 17:59] LABS: MUCOUS Present (NOT PRESENT); URINE BACTERIA Rare /hpf (NONE SEEN); URINE CALCIUM OXALATE CRYSTAL Present (NOT PRESENT)
[2023-03-20 19:01] LABS: ALBUMIN 4.3 gm/dL (3.5-5.0); BILIRUBIN,TOTAL 0.4 mg/dL (0.2-1.2); CALCIUM 9.2 mg/dL (8.4-10.2); CREATININE, serum 0.84 mg/dL (0.57-1.11); POTASSIUM 3.2 mmol/L (3.5-4.5)
[2023-03-20 20:14] VITALS: BP 135/88; PULSE 84
== END 2023-03-20 20:14 | disposition home or self-care (01) ==
LOC: COL.ER 16:53
PROVIDERS: Physician Assistant
DX: R10.2 Pelvic and perineal pain (principal); R11.0 Nausea; Z32.02 Encounter for pregnancy test, result negative; Z87.442 Personal history of urinary calculi
CPT/HCPCS: J1885; J2405; J7030; Q9967